=== PATIENT | female | born 1960 | race Caucasian/White ===

== ENCOUNTER 2019-06-16 10:09 | Observation (INO) | payer OTHER ==
[~2019-06-16] VITALS: Ht 160 cm; Wt 68.0 kg
[~2019-06-16 10:09] MED LIST: LISINOPRIL10 MG PO
--- OUTSIDE RECORDS SUMMARY | 2019-06-16 10:12 | XMS REPORT | Encounter Summary ---
Author Organization Unknown Address [address] [place] [address] Phone [phone] Care Team Providers Care [employer] Vice President Name Role Phone Dr. Gonzalo Grady 3 [phone] Saturnino Tompkins OD 111 [phone] Reason for Visit runny nose; sore throat; allergies Instructions 1. Allergic rhinitis dexamethasone 4 mg/mL injection solution triamcinolone acetonide 40 mg/mL suspension for injection Medrol (Orlin) 4 mg tablets in a dose pack 2. Body mass index 25-29 - overweight learning about healthy weight 3. Screening for malignant neoplasm of cervix gynecology referral 4. Asthma Discussion Note: None recorded. Plan of Care Reminders Provider Appointments Est Patient on or around 03/27/2019 Jason Ames MD Lab None recorded. Referral Gynecology Referral 01/22/2019 Procedures None recorded. Surgeries None recorded. Imaging None recorded. Medications Name Start Date albuterol sulfate 0.63 mg/3 mL solution for nebulization Inhale 1 mL 4 times a day by inhalation route as needed. atorvastatin 40 mg tablet Take 1 tablet every day by oral route. dexamethasone 4 mg/mL injection solution Take 4 mg by injection route for 1 day. fluticasone propionate 50 mcg/actuation nasal spray,suspension USE 2 SPRAYS IN EACH NOSTRIL ONCE DAILY NEEDED lisinopril 20 mg tablet Take 1 tablet every day by oral route. loratadine 10 mg tablet Take 1 tablet every day by oral route for 90 days. Medrol (Orlin) 4 mg tablets in a dose pack Take 1 dose pk every day by oral route. montelukast 10 mg tablet Take 1 tablet every day by oral route in the evening for 90 days. ProAir HFA 90 mcg/actuation aerosol inhaler Inhale 2 puffs every 6-8 hours by inhalation route as needed for 30 days. triamcinolone acetonide 40 mg/mL suspension for injection Take 40 mg by injection route for 1 day. Medications Administered Name Date dexamethasone 4 mg/mL injection solution Take 4 mg by injection route for 1 day. [id number]:00 triamcinolone acetonide 40 mg/mL suspension for injection Take 40 mg by injection route for 1 day. [id number]:00 Vitals Height Weight BMI Blood Pressure 5 ft 2.9 in 151 lbs 26.8 kg/m2 134/80 mm[Hg] Lab Results Date Name Specimen Result Interpretation Description Value Range Status Address 12/26/2018 CBC W/ Auto Diff Normal White Blood Cell Count 8.6 thousand/uL 3.8-10.8 thousand/uL [facility]: [address] [place] Normal Red Blood Cell Count 4.00 million/uL 3.80-5.10 million/uL [facility]: [address] [place] Normal Hemoglobin 13.1 g/dL 11.7-15.5 g/dL [facility]: [address] [place] Normal Hematocrit 38.3 % 35.0-45.0 % [facility]: [address] [place] Normal Mcv 95.8 fL 80.0-100.0 fL [facility]: [address] [place] Normal Mch 32.8 pg 27.0-33.0 pg [facility]: [address] [place] Normal Mchc 34.2 g/dL 32.0-36.0 g/dL [facility]: [address] [place] Normal Rdw 13.1 % 11.0-15.0 % [facility]: [address] [place] High Platelet Count 422 thousand/uL 140-400 thousand/uL [facility]: [address] [place] Normal Mpv 9.0 fL 7.5-12.5 fL [facility]: [address] [place] Normal Absolute Neutrophils 4936 cells/uL 6315-3455 cells/uL [facility]: [address] [place] Normal Absolute Lymphocytes 2528 cells/uL 850-3900 cells/uL [facility] [address] [facility] [facility] Absolute Monocytes 843 cells/uL 200-950 cells/uL [facility]: [address] Normal Absolute Eosinophils 215 cells/uL 15-500 cells/uL [facility]: [address] Normal Absolute Basophils 77 cells/uL 0-200 cells/uL [facility]: [address] Normal Neutrophils 57.4 % [facility]: [address] [place] [address], [place] Normal Lymphocytes 29.4 % [facility]: [address] [place] [address], [place] Normal Monocytes 9.8 % [facility]: [address] Normal Eosinophils 2.5 % [facility]: [address] Normal Basophils 0.9 % [facility]: [address] 12/26/2018 Hepatitis C Virus RNA, Quant, PCR, Serum or Plasma Normal Hepatitis C Antibody non-reactive non-reactive [facility]: [address] Normal Signal to Cut-off 0.01 <1.00 [facility]: [address] 12/26/2018 CMP, Serum or Plasma Alt 28 U/L 0-55 U/L [facility]: [address] Ast 19 U/L 5-34 U/L [facility]: [address] Bun 16.8 mg/dL 9.8-20.1 mg/dL [facility]: [address] Alk Phos 84 unit/L 40-150 unit/L [facility]: [address] Glucose 86 mg/dL 70-99 mg/dL [facility]: [address] Albumin 3.8 g/dL 3.5-5.0 g/dL [facility]: [address] Creatinine 0.78 mg/dL 0.57-1.11 mg/dL [facility]: [address] eGFR Non- >60 mL/min/1.73m2 [facility]: [address] Total Bilirubin 0.5 mg/dL 0.2-1.2 mg/dL [facility]: [address] [facility], [place] eGFR - >60 mL/min/1.73m2 [facility]: [address] [place] [address], [place] Sodium 141 mEq/L 136-145 mEq/L [facility]: [address] [place] [address], [place] Potassium 4.2 mEq/L 3.5-5.1 mEq/L [facility]: [address] [place] [address], [place] Chloride 106 mmol/L 98-107 mmol/L [facility]: [address] [place] [address], [place] Total Protein 6.7 g/dL 6.4-8.3 g/dL [facility]: [address] Calcium 9.2 mg/dL 8.6-10.4 mg/dL [facility]: [address] [place] [address], [place] Co2 26.1 mmol/L 23.0-31.0 mmol/L [facility]: [address] Anion Gap 9 calc [facility]: [address] 12/26/2018 Lipid Panel, Serum Hdl 46 mg/dL 40-60 mg/dL [facility]: [address] High Triglyceride 179 mg/dL 0-149 mg/dL [facility]: [address] VLDL Calc. 36 mg/dL [facility]: [address] cholesterol/HDL Ratio 3.4 mg/dL [facility]: [address] non-HDL Cholesterol Calc. 111 mg/dL 0-160 mg/dL [facility]: [address] Cholesterol 157 mg/dL 0-199 mg/dL [facility]: [address] LDL Calc. 75 mg/dL 0-130 mg/dL [facility]: [address] 12/26/2018 TSH, Serum or Plasma Tsh 0.697 uIU/mL 0.350-4.940 uIU/mL [facility]: [address] [place] [address], [place] 12/26/2018 Vitamin D, 25-Hydroxy, Total, Serum Low Vitamin D 25OH 26.8 NG/mL 30.0-96.0 NG/mL [facility]: [address] [place] [address], [place] 12/26/2018 HbA1C (Hemoglobin a1C), Blood A1C W/eag 5.5 % 1.0-5.7 % [facility]: [address] [place] [address], [place] Average Blood Glucose 111 mg/dL [facility]: [address] [place] [address], [place] 12/26/2018 Urinalysis, Dipstick Color Color yellow [facility] ([facility] [place]: [address] [place] Color Appearance clear [facility] ([facility]) [place]: [address] [place] Color Glucose negative [facility] ([facility]) [place]: [address] [place] Color Bilirubin negative [facility] ([facility]) [place]: [address] [place] Color Ketones negative [facility] ([facility]) [place]: [address] [place] Color Specific [place] 1.030 [facility] ([facility]) [place]: [address] [place] Color Blood negative [facility] [place]: [address] [place] Color PH 6.5 [facility] [place]: [address] [place] Color Protein negative [facility] ([facility]) [place]: [address] [place] Color Urobilinogen 0.2 [facility] ([facility]) [place]: [address] [place] Color Nitrites negative [facility] (p) [place]: [address] [place] Color Leukocytes negative [facility] ([facility]) [place]: [address] [place] Allergies Code Code System Name Reaction Severity Status Onset 215430 RxNorm Bactrim Active Sulfa (Sulfonamide Antibiotics) Active Problems Name Status Onset Date Source Asthma Active 09/28/2017 Hyperlipidemia Active Hypertensive Disorder Active Procedures Date Name Performed by 01/04/2011 Colonoscopy Information not available Tubal Ligation Information not available Tonsillectomy Information not available Cholecystectomy (Gall Bladder Removal) Information not available 12/26/2018 Bone Density [facility] [address] [place] [address] (Work [address]) Vaccine List Vaccine Type influenza, injectable, quadrivalent, preservative free 05/18/20180.5 mL influenza, seasonal, injectable 06/20/20160.5 mL influenza, unspecified formulation 09/18/2014 Tdap 0.5 mL zoster subunit 0.5 mL 0.5 mL Social History Smoking Status Never Smoker Past Encounters 01/22/2019 Allergic Rhinitis; Body Mass Index 25-29 - Overweight; Screening for Malignant Neoplasm of Cervix; Asthma Mira Flores MD: [address] [place] [phone], Ph. 12/26/2018 Adult Health Examination; Exposure to Hepatitis C Virus; Screening for Malignant Neoplasm of Colon; Acute Exacerbation of Asthma; Body Mass Index 25-29 - Overweight; Postmenopausal State; Depression Screening; Immunization Jason Ames MD: [address] [place] [phone], Ph. History of Present Illness Note:58yo female presents for evaluation of upper resp symptoms for past 3 days. <div>Saw Dr Ames last month & has been taking Singulair & Claritin & amp; Flonase daily. Having trouble with allergies due to pesticide for bed bugs (powder) in apartment. Pt treated her apt with powder & stayed out of apt for past 2wks staying at aunt's apt. Returned to apt last & now trying to get powder cleaned up. Mother (81yo) lives with pt due to dementia. Had apt inspected & no further bed bugs.</div><div>Pt's symptoms started on Monday with runny nose, watery right eye, sore throat, post-nasal drip. Some sinus pressure (using Tylenol). No fever, no cough, no N/V/D. No wheezing, but did use albuterol nebulizer last night.</div><div>
</div><div>Previously:< /div><div>Hx of asthma since childhood. Uses ProAir inhaler rescue inhaler. Doesn't get sick often. Allergic to bactrim (sulfa) - rash.</div><div><div> Nonsmoker. Had flu vaccine last visit 05/18/18 at visit.</div></div> Review of Systems:ROS as noted in the HPI Review of Systems Comprehensive General Adult ROS Reported By: Patient Constitutional: Constitutional: no fever Eyes: Eyes: no vision change ENMT: Ears: no difficulty hearing, no ear pain. Nose: no frequent nosebleeds, nose problems, sinus problems. Mouth/Throat: sore throat Cardiovascular: Cardiovascular: no chest pain Respiratory: Respiratory: no shortness of breath, no coughing up blood, cough, wheezing Gastrointestinal: Gastrointestinal: no abdominal pain, no nausea, no vomiting, no diarrhea Neurologic: Neurologic: no headaches Allergic/Immunologic: Allergy/Immunologic: runny nose, sinus pressure Physical Exam Upper Respiratory Infection Exam Comprehensive Reported By: Patient Constitutional: General Appearance in no acute distress Skin: Inspection and palpation: no rash Head: Sinuses right frontal tenderness, left frontal tenderness Eyes: Pupils EOM intact, PERRLA, conjunctiva non-injected; watery right eye Ears: Right External auditory canal normal appearance. Left External auditory canal normal appearance. Right Tympanic membrane pearly hernandez, landmarks clear. Left Tympanic membrane: pearly hernandez, landmarks clear Nose: Nasal Skin: no lesion. Nasal Mucosa pink and moist, irritated mucosa, clear discharge Oral Cavity/Mouth: Oral Mucosa: normal, moist. Tonsils: erythema. Posterior pharynx: erythema Lymph Nodes: Cervical no palpable lymph node enlargement, no submandibular adenopathy, no posterior cervical adenopathy, no anterior cervical adenopathy Neck: Neck symmetrical Lungs: Respiratory effort unlabored. Auscultation breath sounds normal, no wheezing, no rales / crackles; no wheeze currently Cardiovascular System: Auscultation regular rate and rhythm, no murmur. Observation/Palpation of peripheral vascular system carotid pulse normal, no edema
--- OUTSIDE RECORDS SUMMARY | 2019-06-16 10:12 | XMS REPORT | Encounter Summary ---
Author Organization Unknown Address [address] [place] [address] Phone [phone] Care Team Providers Care Director Institution Name Role Phone Dr. Gonzalo Grady 3 [phone] Gonzalo Marrero MD 3 [phone] Reason for Visit Annual physical - female Instructions 1. Adult health examination CBC w/ auto diff CMP, serum or plasma lipid panel, serum TSH, serum or plasma urinalysis, dipstick HbA1c (hemoglobin A1c), blood vitamin D, 25-hydroxy, total, serum 2. Exposure to Hepatitis C virus hepatitis C virus RNA, quant, PCR, serum or plasma 3. Screening for malignant neoplasm of colon colonoscopy referral - PLEASE FAX NOTES TO [phone]. 4. Acute exacerbation of asthma 5. Body mass index 25-29 - overweight learning about healthy weight 6. Postmenopausal state bone density - PLEASE CALL PATIENT AND SCHEDULE HER AN APPOINTMENT. PLEASE FAX NOTES TO [phone]. 7. Depression screening learning about depression 8. Immunization Adacel (Tdap Adolesn/Adult)(PF)2 Lf-(2.5-5-3-5)-5 Lf/0.5 mL IM syringe Shingrix Adjuvant Component (PF) intramuscular suspension Discussion Note If you do not hear from us in 1 week after the labs are done ,pl call us for results f/u in 3 mth s/prn Plan of Care Reminders Provider Appointments Est Patient on or around 03/27/2019 Jason Ames MD Lab CBC W/ Auto Diff 12/26/2018 [facility] CMP, Serum or Plasma 12/26/2018 [facility] Lipid Panel, Serum 12/26/2018 [facility] TSH, Serum or Plasma 12/26/2018 [facility] Urinalysis, Dipstick 12/26/2018 [facility] ([facility] [place] Hepatitis C Virus RNA, Quant, PCR, Serum or Plasma 12/26/2018 [facility] HbA1C (Hemoglobin a1C), Blood 12/26/2018 [facility] Vitamin D, 25-Hydroxy, Total, Serum 12/26/2018 [facility] Referral Colonoscopy Referral 12/26/2018 Dio Wharton MD Procedures None recorded. Surgeries None recorded. Imaging Bone Density 12/26/2018 [facility] Medications Name Start Date albuterol sulfate 0.63 mg/3 mL solution for nebulization Inhale 1 mL 4 times a day by inhalation route. atorvastatin 40 mg tablet Take 1 tablet every day by oral route. fluticasone propionate 50 mcg/actuation nasal spray,suspension USE 2 SPRAY(S) IN EACH NOSTRIL ONCE DAILY NEEDED lisinopril 20 mg tablet Take 1 tablet every day by oral route. loratadine 10 mg tablet Take 1 tablet every day by oral route for 90 days. montelukast 10 mg tablet Take 1 tablet every day by oral route in the evening for 90 days. ProAir HFA 90 mcg/actuation aerosol inhaler Inhale 2 puffs every 6-8 hours by inhalation route as needed for 30 days. Medications Administered None recorded. Vitals Height Weight BMI Blood Pressure 5 ft 2.9 in 150 lbs 26.7 kg/m2 110/70 mm[Hg] Lab Results Date Name Specimen Result Interpretation Description Value Range Status Address 12/26/2018 Urinalysis, Dipstick Color Color yellow [facility] [place]: [address] [place] Color Appearance clear [facility] [place]: [address] [place] Color Glucose negative [facility] [place]: [address] [place] Color Bilirubin negative [facility] [place]: [address] [place] Color Ketones negative [facility] [place]: [address] [place] Color Specific [place] 1.030 [facility] [place]: [address] [place] Color Blood negative [facility] [place]: [address] [place] Color PH 6.5 [facility] [place]: [address] [place] Color Protein negative [facility] [place]: [address] [facility], [place] Color Urobilinogen 0.2 [facility] [place]: [address] [facility] [place] Color Nitrites negative [facility] [place]: [address] [facility], [place] Color Leukocytes negative [facility] [place]: [address] [facility] [place] Allergies Code Code System Name Reaction Severity Status Onset 617326 RxNorm Bactrim Active Sulfa (Sulfonamide Antibiotics) Active Problems Name Status Onset Date Source Asthma Active 09/28/2017 Hyperlipidemia Active Hypertensive Disorder Active Procedures Date Name Performed by 01/04/2011 Colonoscopy Information not available Tubal Ligation Information not available Tonsillectomy Information not available Cholecystectomy (Gall Bladder Removal) Information not available 12/26/2018 [facility] [address] [place] [address] [address] (Work [address]) Vaccine List Vaccine Type influenza, injectable, quadrivalent, preservative free 05/18/20180.5 mL influenza, seasonal, injectable 06/20/20160.5 mL influenza, unspecified formulation 09/18/2014 Tdap 0.5 mL zoster subunit 0.5 mL 0.5 mL Social History Smoking Status Never Smoker Past Encounters 12/26/2018 Adult Health Examination; Exposure to Hepatitis C Virus; Screening for Malignant Neoplasm of Colon; Acute Exacerbation of Asthma; Body Mass Index 25-29 - Overweight; Postmenopausal State; Depression Screening; Immunization Jason Ames MD: [address] [place] [phone], Ph. History of Present Illness Hypertension Reported By: Patient Notes: No chest pain , no shortness of breath, no palpitations ,no dizziness , no diaphoresis , no weakness or numbness in arms or legs , no visual loss . no muscle aches , no muscle weakness Note:Here to get a physical , doing well with seasonal llergies , taking all meds , No chest pain , no shortness of breath, no palpitations ,no dizziness , no diaphoresis , no weakness or numbness in arms or legs , no visual loss .C/o Lt hip pain if shhe walks 30 mins or more, GOING ON SINCE 2 yrs . Occasionaly take sibuprofen it helps. Review of Systems:ROS as noted in the HPI Review of Systems None recorded. Physical Exam General Adult Exam (Female) Reported By: Patient Constitutional: General Appearance: well-developed; BMI - 26.7. Level of Distress: NAD. Ambulation: ambulating normally Psychiatric: Insight: good judgement. Mental Status: active and alert, normal mood, normal affect. Orientation: to time, to place, to person Head: Head: normocephalic, atraumatic Eyes: Lids and Conjunctivae: non-injected, no discharge, no pallor. Pupils: PERRLA. Corneas: grossly intact. EOM: EOMI. Lens: clear. Sclerae: non-icteric ENMT: Ears: no lesions on external ear, EACs clear, TMs clear. Hearing: no hearing loss. Nose: no lesions on external nose, nares patent, no septal deviation, nasal passages clear, no sinus tenderness, no nasal discharge. Lips, Teeth, and Gums: no mouth or lip ulcers, no bleeding gums, normal dentition. Oropharynx: moist mucous membranes, no erythema, no exudates, tonsils not enlarged Neck: Neck: supple, trachea midline, no masses, FROM. Lymph Nodes: no cervical LAD, no supraclavicular LAD, no axillary LAD. Thyroid: no enlargement, non- tender, no nodules Lungs: Respiratory effort: no dyspnea. Auscultation: breath sounds normal, good air movement, CTA except as noted, no wheezing, no rales/crackles, no rhonchi Cardiovascular: Heart Auscultation: RRR, normal S1, normal S2, no murmurs, no rubs, no gallops Abdomen: Bowel Sounds: normal. Inspection and Palpation: soft, non-distended, no tenderness, no guarding, no rebound tenderness, no masses, no CVA tenderness. Liver: non-tender, no hepatomegaly Musculoskeletal:: Motor Strength and Tone: normal motor strength, normal tone. Joints, Bones, and Muscles: normal movement of all extremities, no bony abnormalities, no contractures, no malalignment, no tenderness. Extremities: no cyanosis, no edema, no varicosities Neurologic: Gait and Station: normal gait, normal station. Cranial Nerves: grossly intact. Sensation: grossly intact Skin: Inspection and palpation: no rash, no lesions, no abnormal nevi, good turgor, no jaundice. Nails: normal Back: Thoracolumbar Appearance: normal curvature Notes: Alert, oriented x 3 , Cranial nerves 2-12 intact , Strength 5/5 in all 4 extremities , Gait - Normal , Speech - normal, Visual marrufo - Intact , Sensations - intact in all 4 extremities, DTR's - 2 + in all 4 extremities , No tremors, cerebellar signs intact , straight line walking test & finger nose test - normal, Rhomberg- Negative
--- OUTSIDE RECORDS SUMMARY | 2019-06-16 10:12 | XMS REPORT | Encounter Summary ---
Author Organization Unknown Address [address] [place] [address] Phone [phone] Care Team Providers Care Upper Extremity Surgeon Name Role Phone Dr. Gonzalo Grady 3 [phone] Gonzalo Marrero MD 3 [phone] Reason for Visit hyperlipidemia; hypertension; cough / congestion Instructions 1. Hypertensive disorder lisinopril 20 mg tablet 2. Hyperlipidemia atorvastatin 40 mg tablet 3. Immunization refused 4. Immunization Shingrix Adjuvant Component (PF) intramuscular suspension 5. Exacerbation of asthma dexamethasone 4 mg/mL injection solution triamcinolone acetonide 40 mg/mL suspension for injection Singulair 10 mg tablet 6. Impaired fasting glycaemia HbA1c (hemoglobin A1c), blood 7. Seasonal allergic rhinitis fluticasone 50 mcg/actuation nasal spray,suspension loratadine 10 mg tablet Discussion Note: None recorded. Patient educational handouts: No information available. Plan of Care Reminders Provider Appointments Est Patient on or around 12/12/2018 Jason Ames MD Lab HbA1C (Hemoglobin a1C), Blood 11/14/2018 [facility] Laboratory Referral None recorded. Procedures None recorded. Surgeries None recorded. Imaging None recorded. Medications Name Start Date albuterol sulfate 0.63 mg/3 mL solution for nebulization Inhale 1 mL 4 times a day by inhalation route. atorvastatin 40 mg tablet Take 1 tablet every day by oral route. fluticasone 50 mcg/actuation nasal spray,suspension USE 2 SPRAY(S) IN EACH NOSTRIL ONCE DAILY NEEDED lisinopril 20 mg tablet Take 1 tablet every day by oral route. loratadine 10 mg tablet Take 1 tablet every day by oral route for 90 days. ProAir HFA 90 mcg/actuation aerosol inhaler Inhale 2 puffs every 6-8 hours by inhalation route as needed for 30 days. Singulair 10 mg tablet Take 1 tablet every day by oral route in the evening for 90 days. Medications Administered None recorded. Vitals Height Weight BMI Blood Pressure 5 ft 2.9 in 151 lbs 26.8 kg/m2 136/82 mm[Hg] Lab Results None recorded. Allergies Code Code System Name Reaction Severity Status Onset 727961 RxNorm Bactrim Active Sulfa (Sulfonamide Antibiotics) Active Problems Name Status Onset Date Source Asthma Active 09/28/2017 Hyperlipidemia Active Hypertensive Disorder Active Procedures Date Name Performed by 01/04/2011 Colonoscopy Information not available Tubal Ligation Information not available Tonsillectomy Information not available Cholecystectomy (Gall Bladder Removal) Information not available Vaccine List Vaccine Type influenza, injectable, quadrivalent, preservative free 05/18/20180.5 mL influenza, seasonal, injectable 06/20/20160.5 mL influenza, unspecified formulation 09/18/2014 zoster subunit 0.5 mL Social History Smoking Status Never Smoker Past Encounters 11/14/2018 Hypertensive Disorder; Hyperlipidemia; Immunization Refused; Immunization; Exacerbation of Asthma; Impaired Fasting Glycaemia; Seasonal Allergic Rhinitis Jason Ames MD: [address] [place] [address], Ph. History of Present Illness Hypertension Reported By: Patient Notes: No chest pain , no shortness of breath, no palpitations ,no dizziness , no diaphoresis , no weakness or numbness in arms or legs , no visual loss . Hyperlipidemia Reported By: Patient Notes: No chest pain , no shortness of breath, no palpitations ,no dizziness , no diaphoresis , no weakness or numbness in arms or legs , no visual loss . no muscle aches , no muscle weakness Note:Here because she has has astham since , coughing - ++, runnyn nose ++, stuffy nose ++, fe + x days . head ache x 4 day s. chest tightness ++. Review of Systems None recorded. Physical Exam Upper Respiratory Infection Exam Comprehensive Reported By: Patient
--- OUTSIDE RECORDS SUMMARY | 2019-06-16 10:12 | XMS REPORT | Encounter Summary ---
Author Organization Unknown Address [address] [place] [address] Phone [phone] Care Team Providers Care Medical Voucher Clerk Name Role Phone Dr. Gonzalo Grady 3 [phone] Gonzalo Marrero MD 3 [phone] Reason for Visit hyperlipidemia; hypertension; cough / [...] MD Lab HbA1C (Hemoglobin a1C), Blood 11/14/2018 [facility] Laboratory Referral None recorded. Procedures [...] by injection route for 1 day. fluticasone 50 mcg/actuation nasal spray,suspension USE 2 [...] route in the evening for 90 days. triamcinolone acetonide 40 mg/mL suspension for injection Take 40 mg by injection route for 1 day. Medications Administered Name Date dexamethasone 4 mg/mL injection solution Take 4 mg by injection route for 1 day. 1680-79-99K34:15:00 triamcinolone acetonide 40 mg/mL suspension for injection Take 40 mg by injection route for 1 day. 1097-23-99U08:15:00 Vitals Height Weight BMI Blood Pressure 5 ft 2.9 in 151 lbs 26.8 kg/m2 136/82 mm[Hg] Lab Results None recorded. Allergies Code Code System Name Reaction Severity Status Onset 972641 RxNorm Bactrim Active Sulfa (Sulfonamide Antibiotics) Active [...] Glycaemia; Seasonal Allergic Rhinitis Jason Ames MD: [address] [place] [address], Ph. History of Present Illness Hypertension Reported [...] muscle weakness Note:Here because she has has asthma since , coughing - ++, runny nose ++, stuffy nose ++, fever + x some ?days . head ache x 4 days. chest tightness ++. does not take any allergy meds , she has seasonal allergies all year round , takes a few steroid inj throughout the year. no phlegm with cough . wants refill on her meds. No chest pain , no shortness of breath, no palpitations ,no dizziness , no diaphoresis , no weakness or numbness in arms or legs , no visual loss . no muscle aches , no muscle weakness Review of Systems:ROS as noted in the HPI Review of Systems None recorded. Physical Exam Upper Respiratory Infection Exam Comprehensive Reported By: Patient
--- OUTSIDE RECORDS SUMMARY | 2019-06-16 10:12 | XMS REPORT | Encounter Summary ---
Author Organization Unknown Address [address] [place] [address] Phone [phone] Care Team Providers Care Cell Reliner Name Role Phone Dr. Gonzalo Grady 3 [phone] Gonzalo Marrero MD 3 [phone] Reason for Visit hyperlipidemia; hypertension; cough / [...] nasal spray,suspension loratadine 10 mg tablet Discussion Note Per pt no one told her about allergies triggering her asthma , d/w pt i have d/w hwr tpady so start taking / doing preventive meds all yr round f/u in 1 month to do fasting labs Patient educational handouts: No information available. Plan of Care Reminders Provider Appointments Est Patient on or around 12/12/2018 Jason Ames MD Lab HbA1C (Hemoglobin a1C), Blood 11/14/2018 [facility] Laboratory Referral None recorded. Procedures None recorded. [...] mg by injection route for 1 day. 1826-01-05C93:15:00 triamcinolone acetonide 40 mg/mL suspension for injection Take 40 mg by injection route for 1 day. 0928-46-00C57:15:00 Vitals Height Weight BMI Blood Pressure 5 ft 2.9 in 151 lbs 26.8 kg/m2 136/82 mm[Hg] Lab Results None recorded. Allergies Code Code System Name Reaction Severity Status Onset 006102 RxNorm Bactrim Active Sulfa (Sulfonamide Antibiotics) Active [...] Glycaemia; Seasonal Allergic Rhinitis Jason Ames MD: [address] [place] [address], Ph. History of Present Illness Hypertension Reported [...] None recorded. Physical Exam General Adult Exam (Female), Upper Respiratory Infection Exam Comprehensive Reported By: Patient Constitutional: General Appearance: well-developed; occasional cough & sob when talking frequently. Level of Distress: mild distress. Ambulation: ambulating normally Psychiatric: Insight: good judgement. Mental Status: active and alert, normal mood, normal affect. Orientation: to time, to place, to person Head: Head: normocephalic, atraumatic Eyes: Lids and Conjunctivae: non-injected, no discharge, no pallor. Pupils: PERRLA. Corneas: grossly intact. EOM: EOMI. Lens: clear. Sclerae: non-icteric ENMT: Ears: no lesions on external ear, EACs clear, TM bulging. Hearing: no hearing loss. Nose: no lesions on external nose, nares patent, no septal deviation, nasal passages clear, no sinus tenderness, no nasal discharge; no sinus discomfort. Lips, Teeth, and Gums: no mouth or lip ulcers, no bleeding gums, normal dentition. Oropharynx: moist mucous membranes, no erythema, no exudates, tonsils not enlarged; cobblestone pattern in posterior pharyngeal wall Neck: Neck: supple, trachea midline, no masses, FROM. Lymph Nodes: no cervical LAD, no supraclavicular LAD, no axillary LAD. Thyroid: no enlargement, non- tender, no nodules Lungs: Respiratory effort: no dyspnea. Auscultation: good air movement, no rales/crackles, no rhonchi, wheezing expiratory ; mildly prolonged exp phase Cardiovascular: Heart Auscultation: RRR, normal S1, normal [...]
[2019-06-16] MEDS ORDERED: ASPIRIN 81 MG CHEW TAB PO ONE (10:30)
[2019-06-16 11:00] LABS: BASOPHILS # (AUTO) 0.1 (0.0-0.1); BASOPHILS % 1.1 % (0.0-1.0); EOSINOPHILS # (AUTO) 0.2 (0.0-0.4); EOSINOPHILS % 1.7 % (0.0-6.0); HEMOGLOBIN 13.7 g/dL (12.0-16.0); MEAN CORPUSCULAR HEMOGLOBIN 32.6 pg (28-32); MEAN CORPUSCULAR HGB CONC 34.3 g/dL (31-35); MEAN CORPUSCULAR VOLUME 95.2 fL (81-99); MONOCYTES # (AUTO) 0.8 (0.2-0.8); MONOCYTES % 9.4 % (4.4-11.3); NEUTROPHILS # (AUTO) 5.6 (2.1-6.9); NEUTROPHILS % 63.8 % (38.7-80.0); PLATELET COUNT 367 x10e3/uL (140-360)
[2019-06-16 11:01] LABS: BILIRUBIN,URINE NEGATIVE (NEGATIVE); CLARITY,URINE SL CLOUDY (CLEAR); COLOR,URINE YELLOW (YELLOW); KETONES,URINE NEGATIVE (NEGATIVE); LEUKOCYTE ESTERASE ,URINE NEGATIVE (NEGATIVE); NITRITE,URINE NEGATIVE (NEGATIVE); PROTEIN,URINE DIPSTICK NEGATIVE (NEGATIVE); URINE UROBILINOGEN 0.2 mg/dL (0.2 - 1)
[2019-06-16 11:07] LABS: BACTERIA,URINE FEW /HPF; EPITHELIAL CELLS,URINE FEW /LPF; RBC,URINE 0-5 /HPF (0-5); WBC,URINE (MAN) 0-5 /HPF (0-5)
[2019-06-16 11:28] LABS: INR 0.87; PROTHROMBIN TIME 12.3 seconds (11.9-14.5)
[2019-06-16 11:29] LABS: PARTIAL THROMBOPLASTIN TIME 26.5 seconds (23.8-35.5)
[2019-06-16 11:38] LABS: ALANINE AMINOTRANSFERASE 25 IU/L (0-55); ALBUMIN 4.1 g/dL (3.5-5.0); ALBUMIN/GLOBULIN RATIO 1.1 (0.8-2.0); ALKALINE PHOSPHATASE 86 IU/L (40-150); ANION GAP 13.7 mmol/L (8-16); BLOOD UREA NITROGEN 10 mg/dL (7-26); BUN/CREATININE RATIO 13 (6-25); CALCIUM 9.7 mg/dL (8.4-10.2); CARBON DIOXIDE 28 mmol/L (22-29); CHLORIDE 104 mmol/L (98-107); CREATINE KINASE 296 IU/L (29-168); CREATININE, SERUM 0.78 mg/dL (0.57-1.11); EST GLOMERULAR FILTRATION RATE > 60 ML/MIN (60-); GLUCOSE 90 mg/dL (74-118); POTASSIUM 3.7 mmol/L (3.5-5.1); SODIUM 142 mmol/L (136-145)
--- NOTE | 2019-06-16 11:58 | Diagnostic Imaging Report ---
A single frontal view of the chest. HISTORY: Chest pain, heart racing COMPARISON: None available. DISCUSSION: Portable technique, limits sensitivity of the exam. Tubes/Lines: None Lungs and pleura: The lungs are well inflated. No evidence of a consolidative pneumonia or pulmonary alveolar edema. No definite pleural effusion or pneumothorax is identified. Heart and mediastinum: The cardiomediastinal silhouette appear(s) unremarkable. Bones and soft tissues: Appear unremarkable, given this limited exam. IMPRESSION: 1. No acute radiographic abnormality. 2. No significant interval change. Signed by: Dr. Davon Riggs D.O., M.M.M. on 06/16/2019 11:55 AM
--- OUTSIDE RECORDS SUMMARY | 2019-06-16 12:39 | XMS REPORT ---
Author Author [facility] Address Unknown Phone Unavailable Care Team Providers Care Drafter Automotive Design Name Role Phone DARRICK BAUDILIO Unavailable Unavailable Problems This patient has no known problems. Allergies, Adverse Reactions, Alerts This patient has no known allergies or adverse reactions. Medications This patient has no known medications. Results Test Description Test Time Test Comments Text Results Atomic Results Result Comments CHEST SINGLE (PORTABLE) 2019-06-16 11:54:00 [facility] [address] [address] Patient Name: SUMEET TAVERA MR #: [id number] : 1960 Age/Sex: 58/F Req #: [id number] Adm Physician: Ordered by: BAUDILIO HOLLINGSWORTH DO Report #: [id number] Location: ER Room/Bed: Procedure: [id number] DX/CHEST SINGLE (PORTABLE) Exam Date: 06/16/19 Exam Time: 1050 REPORT STATUS: Signed A single frontal view of the chest. HISTORY: Ch est pain, heart racing COMPARISON: None available. DISCUSSION: Portable technique, limits sensitivity of the exam. Tubes/Lines: None Lungs and pleura: The lungs are well inflated. No evidence of a consolidative pneumonia or pulmonary alveolar edema. No definite pleural effusion or pneumothorax is identified. Heart and mediastinum: The cardiomediastinal silhouette appear(s) unremarkable. Bones and soft tissues: Appear unremarkable, given this limited exam. IMPRESSION: 1. No acute radiographic abnormality. 2. No significant interval change. Signed by: Dr. Bran Riggs D.O., M.M.M. on 06/16/2019 11:55 AM Dictated By: BRAN RIGGS DO 1159 Transcribed By: YI on 06/16/19 3490 COPY TO: BAUDILIO HOLLINGSWORTH DO
[2019-06-16] MEDS ORDERED: ONDANSETRON HCL INJ 2MG/ML 2ML 2 MG/ML VIAL IV PRN (13:30)
[2019-06-16] MEDS ORDERED: HYDROCODONE/APAP 5MG-325MG TAB PO PRN (13:30)
[2019-06-16] MEDS ORDERED: ACETAMINOPHEN 325 MG TAB PO PRN (13:30)
[2019-06-16] MEDS: SODIUM CHLORIDE 0.9% 1000ML 1,000 ML IV SCH ×2 (13:45→18:06)
[2019-06-16] MEDS: ASPIRIN 81 MG CHEW TAB PO SCH (13:49)
--- NOTE | 2019-06-16 13:53 | NUR ---
Ariela jimenez in ED - 06/16/19 at [address] hardik infante if pt bp sys is 185-190
--- NOTE | 2019-06-16 14:12 | NUR ---
dr roy at pt bedside
--- NOTE | 2019-06-16 14:53 | NUR ---
dr doan at pt bedside
[2019-06-16 15:16] LABS: CHOL/HDL RATIO 6.6 (3.0-3.6)
--- NOTE | 2019-06-16 15:41 | NUR ---
per dr camacho order ct chest for r/o pe per pe protocol and ns 500 cc bolus; orders repeated back and confirmed
[2019-06-16] MEDS ORDERED: SODIUM CHLORIDE 0.9% 1000ML 500 ML IV SCH (15:45)
[2019-06-16] MEDS ORDERED: SODIUM CHLORIDE 0.9% 50ML 50 ML ONE (16:35)
[2019-06-16] MEDS ORDERED: IOPAMIDOL 370 MG/ML 200 ML INFUS..BTL INJ ONE (16:36)
--- NOTE | 2019-06-16 16:47 | Consultation ---
DATE OF CONSULTATION: 06/16/2019 Cardiology Consultation CONSULTING PHYSICIAN: Kwabena Richards MD, Interventional Cardiology. REASON FOR CONSULTATION: Palpitations. HISTORY OF PRESENT ILLNESS: A 58-year-old woman with history of hypertension, presents via the ER with complaints of palpitations and lightheadedness. She has noted palpitations mostly while at night. That is short lived and unassociated with any other complaints. This morning while getting ready to go to [employer] in hectic morning assisting with the care of several family members including mother with dementia and with the underlying issue of limited sleep lately, she felt sudden onset lightheadedness and sensation of she is going to pass out without associated palpitations, chest pain, shortness of breath, or other complaints at that time. Symptom was self-limiting and lasted a couple of minutes. She decided to seek further evaluation in the ER. ALLERGIES: ALLERGY TO SULFA. PAST MEDICAL HISTORY: Significant for hypertension. SOCIAL HISTORY: No smoking, alcohol, or drugs. FAMILY HISTORY: Significant for CAD in the family members of first-degree . REVIEW OF SYSTEMS: A 12 system review negative except for as noted above. PHYSICAL EXAMINATION: VITAL SIGNS: Temperature 98.7, heart rate 90, respiratory rate 16, blood pressure 132/76, O2 saturation 100% on room air. GENERAL: No acute distress. Alert. NECK: No JVD. CHEST: Clear to auscultation. CARDIOVASCULAR: Regular rate and rhythm. Normal S1, S2. No S3, no S4. No murmurs or rubs. ABDOMEN: Soft, nontender, nondistended. Bowel sounds positive. EXTREMITIES: No cyanosis, clubbing, or edema. VASCULAR: No carotid bruits on exam. SKIN: Dry and intact. HEENT: Mucosa moist. NEURO: Normal speech. Grossly nonfocal. CARDIOVASCULAR MEDICATIONS: Aspirin 81 mg daily and Lovenox 30 mg subcu daily. LABORATORY DATA: Studies reviewed. White blood cells 8.8, hemoglobin 13.7, platelets 367. INR 0.8, PT 12.3, PTT 26.5. Sodium 142, potassium 3.7, chloride 104, bicarbonate 28, BUN 10, and creatinine 0.78, glucose 90, calcium 9.7. Total bilirubin 0.8, AST 20, ALT 25, alkaline phosphatase 86. CK 296, CK-MB 2.6, troponin I less than 0.01. BNP 56. Total protein 7.7, albumin 4.1. Lipids ordered and pending. EKG, sinus rhythm. Telemetry, sinus rhythm. ASSESSMENT: A 58-year-old woman presents with presyncope and palpitations in the setting of history of hypertension. Recommend to observe on telemetry while in-house. 1. Obtain echocardiogram. 2. Obtain second set of cardiac enzymes. 3. Symptoms of atypical arrhythmia within differential. Presyncopal event noted. Obtain D-dimer. Evaluate and consider ruling out for PE. 4. Differential diagnosis includes panic attacks. MD NA Chow/CORI /[id number]
[2019-06-16] MEDS ORDERED: ENOXAPARIN 30 MG/0.3 ML SYR SC SCH (17:00)
--- NOTE | 2019-06-16 17:18 | Diagnostic Imaging Report ---
CT CHEST WITH CONTRAST HISTORY: pe protocol r/o pe , palpitations, increased heart rate, high blood pressure COMPARISON: None available. TECHNIQUE: CT scan of the chest WITH intravenous contrast, using PE protocol. The chest was scanned utilizing a multidetector helical scanner from the lung apex through the level of the adrenal glands. Thin section reconstructions were obtained with special concentration on the pulmonary arteries. IV CONTRAST: 100 cc of Isovue-370. PROTOCOL: PE RADIATION DOSE: Total DLP: 439.45 mGy*cm Dose modulation, iterative reconstruction, and/or weight based adjustment of the mA/kV was utilized to reduce the radiation dose to as low as reasonably achievable. COMPLICATIONS: None DISCUSSION: LUNGS AND AIRWAYS: Mild diffuse bronchial wall thickening. No consolidations or alveolar edema. Minimal left lower lobe atelectasis versus scarring. Similar-appearing scattered pleural fluid nodular conglomerations at the anterior aspect of the right upper lobe (axial image 34), anterior aspect of the left upper lobe (axial image 32), lingula (axial image 79), lingula and left lower lobe (axial image 93). PLEURA: No effusions or pneumothorax. HEART, MEDIASTINUM, VESSELS: The heart is within normal size limits. The thoracic aorta is within normal size limits. The main pulmonary artery is within normal size limits. Artifacts related to dense contrast within the left brachiocephalic vein, superior vena cava, and right heart partially limit the evaluation. No evidence of a pulmonary arterial filling defect to the segmental level. No mediastinal mass or lymphadenopathy. UPPER ABDOMEN: Limited evaluation of the upper abdomen. Cholecystectomy clips MUSCULOSKELETAL: No acute abnormality. Stable appearing hemangioma within the T7 vertebral body. IMPRESSION: 1. No evidence of a pulmonary embolism. 2. Stable appearing small peripheral nodular conglomerations, this may be the chronic sequela of an atypical infection. Signed by: Dr. Davon Riggs D.O., M.M.M. on 06/16/2019 5:14 PM
--- NOTE | 2019-06-16 17:30 | NUR ---
Received patient from ER, a/ox3, principal dgx of palpitations and syncope. Denies any LOC, denies any pains, VSS and no resp distress, no fever, no chills, ambulatory. Work-up at this time for PE, CT with no evidence of pulmonary embolism, Echo pending, call light within reach, will monitor.
[2019-06-16 17:38] VITALS: BP 138/79
--- NOTE | 2019-06-16 17:41 | NUR ---
message left with dr camacho a/s ct chest negative and pt moved to room 102
[2019-06-16 18:04] VITALS: BP 148/73
--- NOTE | 2019-06-16 19:00 | NUR ---
Received report from previous nurse. Call light within reach. Patient sitting in recliner chair. Family at bedside. Patient in no pain or distress.
[2019-06-16 19:20] LABS: CREATINE KINASE MB 1.8 ng/mL (0-5.0)
--- NOTE | 2019-06-16 19:23 | History and Physical ---
CHIEF COMPLAINT: Palpitations. HISTORY OF PRESENT ILLNESS: This is a 58-year-old female with past medical history of hypertension, who comes into the emergency room with complaints of palpitations ongoing for the last several weeks while she is at home. The patient reports that she will wake up occasionally, notice that her heart races suddenly. She also reports that she has been having difficulty falling asleep as well at home. She notes taking care of her mom, who has baseline dementia. She has been very anxious recent that she is working on seeing her son, who is out of town and needs to find or is working on someone taking care of her mother who has dementia, while she is away. The patient reports taking some Tylenol PM at home for sleep, which has helped tremendously, but she has noticed that she had these palpitations and wants to come into the emergency room for further evaluation. She denies any chest pain, loss of consciousness, any stroke-like symptoms, any seizure-like activity. She has never seen a cash register operator before in the past. She is very compliant with the primary care physician visit. Denies any recent sickness, cough, congestion, or any fever. The patient seen and evaluated at bedside in the emergency room. Currently, she is doing well with no other complaints. Her heart rate was in the 80s when I evaluated her and Cardiology was consulted. REVIEW OF SYSTEMS: Pertinent positives: Insomnia and palpitation. Pertinent negatives: Denies any chest pain, nausea, vomiting, diarrhea, dysuria, hematuria, frequency, urgency, lightheadedness, dizziness, abdominal pain, headaches, shortness of breath, cough, congestion, fever, or any other complaints. The rest of 14-point review of systems have been reviewed with the patient and are negative. ALLERGIES: SULFA. HOME MEDICATIONS: Lisinopril 20 mg daily. PAST MEDICAL HISTORY: Hypertension. PAST SURGICAL HISTORY: None. FAMILY HISTORY: Hypertension and diabetes. SOCIAL HISTORY: No drugs. No alcohol. Does not smoke. She probably has dementia. PHYSICAL EXAMINATION: VITAL SIGNS: Temperature is 98.7, pulse 90, respiratory rate 16, blood pressure 132/76, pulse ox 100% on room air. GENERAL: Not in acute distress. Alert and oriented x3. Cooperative on examination. HEENT: Head; normocephalic, atraumatic. Eyes; pupils are equal, round, and reactive to light bilaterally. Extraocular movements intact bilaterally. NECK: Supple. Good range of motion. Throat; no evidence of erythema or exudates in the posterior pharynx. PULMONARY: Clear to auscultation bilaterally. No wheezing, no rales, no rhonchi, no crackles appreciated. CARDIOVASCULAR: Positive S1 and S2. No murmurs, rubs, or gallops appreciated. ABDOMEN: Soft, nondistended, and nontender to palpation. Bowel sounds present. MUSCULOSKELETAL: Strength is 5/5 throughout. No evidence of any muscle deficits on examination. No weakness appreciated. NEUROLOGIC: Cranial nerve II through XII grossly intact. No evidence of any neurological deficits on exam. SKIN: Intact. Warm to touch. Good cap refill. PSYCHIATRIC: Normal affect and mood. EXTREMITIES: No edema. Good range of motion throughout. LAB FINDINGS: Show white count 8.8, hemoglobin 13.5, hematocrit is 40, platelets of 367. Coagulation; PT 12, INR 0.87, PTT 26. Chemistry; sodium 142, potassium 3.7, chloride 104, bicarb 20, anion gap of 13, BUN 10, creatinine 0.78, glucose is 90, calcium 9.7, total bilirubin is 0.8, AST 20, ALT 25, alk phos 86, CK 296, CK-MB 2.6, troponins is 0.001. BNP 56. Total protein 7.7, albumin is 4.1. Urinalysis negative. MICROBIOLOGY: None. IMAGING CHEST: X-ray, no acute radiographic abnormality. No significant interval change. IMPRESSION: 1. Palpitation, unknown etiology. 2. Insomnia. 3. Concern for generalized anxiety. 4. Hypertension. PLAN: At this time, I do not feel like the patient had a syncopal episode. She reports that when these occur she has never lost consciousness. She was always aware of . She reports that every time she goes to sleep, she kind of wakes up kind of anxious and notices her heart races. At this time, I will get a cardiac workup. Cardiology consulted 3D echo trend troponins, TSH level, lipid panel and A1c, 2D echo, carotid ultrasound monitor on cardiac telemetry. We will monitor her heart rate very closely. We will give her something for sleep at night, seems like her main issue is that she is very anxious, coming this issues she is going to be traveling and needs someone to take care of her mom, who has baseline dementia. She reports she has not slept well in the last several days, which could be contributing to her current problem. At this time, we will put her on Lovenox for DVT prophylaxis on regular diet, continue on cardiac telemetry. MD SIM Alvarado/CORI /[id number]
[2019-06-16 19:31] VITALS: BP 148/73
[2019-06-16 19:50] VITALS: BP 125/83
[2019-06-16] MEDS ORDERED: MELATONIN 5 MG TABLET PO PRN (21:00)
[2019-06-17 01:05] VITALS: BP 131/67
[2019-06-17 03:09] LABS: CREATINE KINASE 186 IU/L (29-168)
[2019-06-17 04:00] LABS: BASOPHILS # (AUTO) 0.1 (0.0-0.1); EOSINOPHILS # (AUTO) 0.3 (0.0-0.4); EOSINOPHILS % 3.4 % (0.0-6.0); HEMATOCRIT 34.9 % (34.2-44.1); HEMOGLOBIN 11.9 g/dL (12.0-16.0); LYMPHOCYTES # (AUTO) 2.8 (1.0-3.2); LYMPHOCYTES % 38.3 % (18.0-39.1); MEAN CORPUSCULAR HEMOGLOBIN 32.5 pg (28-32); MEAN CORPUSCULAR HGB CONC 34.1 g/dL (31-35); MEAN CORPUSCULAR VOLUME 95.4 fL (81-99); MONOCYTES # (AUTO) 0.7 (0.2-0.8); MONOCYTES % 8.8 % (4.4-11.3); NEUTROPHILS # (AUTO) 3.5 (2.1-6.9); NEUTROPHILS % 47.4 % (38.7-80.0); PLATELET COUNT 332 x10e3/uL (140-360); RED BLOOD COUNT 3.66 x10e6/uL (3.6-5.1); RED CELL DISTRIBUTION WIDTH 12.6 % (11.7-14.4)
[2019-06-17 04:10] LABS: ANION GAP 13.8 mmol/L (8-16); BLOOD UREA NITROGEN 9 mg/dL (7-26); BUN/CREATININE RATIO 13 (6-25); CALCIUM 9.1 mg/dL (8.4-10.2); CARBON DIOXIDE 23 mmol/L (22-29); CHLORIDE 107 mmol/L (98-107); CREATININE, SERUM 0.69 mg/dL (0.57-1.11); EST GLOMERULAR FILTRATION RATE > 60 ML/MIN (60-); GLUCOSE 101 mg/dL (74-118); POTASSIUM 3.8 mmol/L (3.5-5.1); SODIUM 140 mmol/L (136-145)
[2019-06-17 05:19] VITALS: BP 121/63
[2019-06-17] MEDS: SODIUM CHLORIDE 0.9% 1000ML 1,000 ML IV SCH (07:01)
--- NOTE | 2019-06-17 07:11 | NUR ---
Gave report to oncoming nurse. Call light within reach. Patient in bed.
[2019-06-17 07:16] VITALS: BP 129/70
[2019-06-17 07:18] VITALS: BP 129/70
[2019-06-17] MEDS: ASPIRIN 81 MG CHEW TAB PO SCH (08:40)
[2019-06-17] MEDS ORDERED: ASPIRIN 325 MG TAB PO SCH (09:00)
[2019-06-17 11:47] VITALS: BP 141/67
--- NOTE | 2019-06-17 12:26 | Progress Note ---
DATE: 06/17/2019 Cardiology Progress Note SUBJECTIVE: Denies any chest pain, shortness of breath, lightheadedness, or recurrent palpitations. OBJECTIVE: VITAL SIGNS: Temperature 97.3, heart rate 86, blood pressure 129/70, respiratory rate 18, O2 saturation 97%. GENERAL: No acute distress. Alert. NECK: No JVD. CHEST: Clear to auscultation. CARDIOVASCULAR: Regular rate and rhythm, normal S1, S2. No S3, no S4. No murmurs or rubs. ABDOMEN: Soft, nontender, nondistended. Bowel sounds positive. EXTREMITIES: No cyanosis, clubbing, or edema. HEENT: Mucosa moist. SKIN: Dry and intact. NEUROLOGIC: Nonfocal. Normal speech. LABORATORY DATA: Studies reviewed. TSH 1.5. Telemetry in sinus rhythm. Serial cardiac enzymes negative x3. CT chest PE protocol negative for PE with small peripheral nodule conglomerations. Sodium 140, potassium 3.8, chloride 107, bicarbonate 23, BUN 9, creatinine 0.69, glucose 101. White blood cells 7.3, hemoglobin 11.9, platelets 332. INR 0.8. AST 20, ALT 25, alk phos 86. CARDIOVASCULAR MEDICATIONS: Reviewed. 1. Aspirin 81 mg daily. 2. Normal saline. 3. Lovenox 30 mg subcu daily. ASSESSMENT: A 58-year-old woman who presents with presyncope and palpitations. Bedside echocardiogram being done reveals preserved left ventricular systolic function without any significant valvular abnormalities. Full report to be completed later once the image is available for review in echo station. RECOMMENDATIONS: Okay to discharge from a cardiovascular standpoint with outpatient followup advised in 4-6 weeks. Plan for outpatient telemetry monitoring. MD NA Chow/CORI /[id number]
[2019-06-17 15:49] VITALS: BP 122/80
--- NOTE | 2019-06-17 17:05 | NUR ---
reviewed dc instructions with pt, verbalized understanding
--- NOTE | 2019-06-18 22:46 | Progress Note ---
DATE: 06/17/2019 Cardiology Progress Note SUBJECTIVE: Denies any chest pain or shortness of breath. On telemetry and remained sinus rhythm and preserved left ventricular systolic function on echocardiogram without significant valvular abnormalities and without any significant extracranial carotid artery disease on ultrasound. This was discussed with the patient. OBJECTIVE: VITAL SIGNS: Reviewed and stable. GENERAL: No acute distress, alert. NECK: No JVD. CHEST: Clear to auscultation. CARDIOVASCULAR: Regular rate and rhythm. Normal S1 and S2. No S3 or S4. ABDOMEN: Soft, nontender, nondistended. Bowel sounds positive. EXTREMITIES: Trace edema. Warm distal extremities. CARDIOVASCULAR MEDICATIONS: Reviewed. LABORATORY DATA: Studies reviewed. ASSESSMENT: 1. Palpitations without any recurrent and presyncopal spell without any recurrence. 2. History of hypertension. RECOMMENDATION: Outpatient telemetry monitoring. Okay to discharge from the cardiovascular standpoint. Syncope precaution. MD NA Chow/CORI /[id number]
--- NOTE | 2019-06-19 07:48 | Discharge Summary ---
FINAL DISCHARGE DIAGNOSES: 1. Palpitations, unknown etiology. 2. Insomnia. 3. Probable underlying anxiety due to stress. 4. Hypertension. 5. Atypical chest pain. PHYSICAL EXAMINATION: VITAL SIGNS: Temperature is 97.3, pulse 82, respiratory rate is 18, blood pressure 122/80, pulse ox 93% on room air. LAB FINDINGS: Show white count 7.3, hemoglobin 9.9, hematocrit 35, and platelets of 332. Coagulation; PT 12, INR 0.87, PTT 26. D-dimer is 0.48. Chemistry; sodium is 140, potassium 3.8, chloride 107, bicarb 23, anion gap of 13, BUN is 9, creatinine is 0.69, glucose is 101, calcium is 9.1. LFTs within normal range. Troponins were all negative. Albumin was 4.1, LDL was elevated at 215, TSH 1.5. Urinalysis was negative. MICROBIOLOGY: None. IMAGING STUDIES: Chest x-ray was found to be negative. Carotid ultrasound found to be negative. CT chest angiogram, impression, no evidence of pulmonary embolism. 2D echo was normal. 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 She also had complaints of chest pain as well. While here was admitted under observation. Cardiac enzymes were found to be negative. EKG showed no acute findings. There was no alarms on cardiac telemetry. A 2D echo was found to be normal. Carotid ultrasound was also found to be normal. At this time, Cardiology cleared the patient for discharge with outpatient followup in his office in 4 to 6 weeks. May need an outpatient Holter monitor. Otherwise, while here, her heart rate was normal. There was no evidence of any elevations or any type of arrhythmias. She was cleared for discharge by Cardiology. On the day of discharge, vital signs were stable, labs reviewed and stable. The patient is seen and evaluated, and examined thoroughly on the day of discharge. No other complaints. The patient verbalized understanding and agrees to plan of care to follow up accordingly as an outpatient with the primary care physician in 1 week and the network analyst in 4 to 6 weeks according to his note. MEDICATIONS: See med reconciliation form. DISPOSITION: To home. CONDITION: Stable. DIET: Heart healthy. In the event of any worsening symptoms, the patient advised to come back to the ED for further evaluation. Discharge summary took greater than 35 minutes. MD SIM Alvarado/CORI /[id number]
== END 2019-06-17 17:03 | disposition home or self-care (01) ==
LOC: ER 10:09 → ERHOLD 12:08 → MED/SURG 17:21
PROVIDERS: ADMIT Internal Medicine; ATTEND Internal Medicine
DX: R00.2 Palpitations (principal); R30.0 Dysuria; I10 Essential (primary) hypertension; G47.00 Insomnia, unspecified; Z88.2 Allergy status to sulfonamides; Z83.3 Family history of diabetes mellitus; Z82.49 Family history of ischemic heart disease and other diseases of the circulatory system; R07.89 Other chest pain
CPT/HCPCS: 36415 ×2; 71045; 71260; 80048; 80053; 80061; 81001; 82550 ×2; 82553 ×2; 83036; 83880; 84443; 84484 ×2; 85025 ×2; 85379; 85610; 85730; 93005; 93306; 93880; 99284; G0378 ×2; J1650; J7030 ×2; Q9967